=== PATIENT | female | born 1950 | race African-American/Black ===

== ENCOUNTER 2017-06-02 23:39 | Inpatient (IN) | payer MEDICARE ==
[~2017-06-02] VITALS: Ht 197.1 cm; Wt 90.7 kg
[2017-06-03] MEDS ORDERED: METHYLPREDNISOLONE SOD SUCC 125 MG/2 ML VIAL IV ONE
[2017-06-03] MEDS ORDERED: FAMOTIDINE 20MG/2ML VIAL IV ONE
[2017-06-03] MEDS ORDERED: DIPHENHYDRAMINE 50MG/ML VIAL IV ONE
[2017-06-03 00:23] LABS: BASOPHILS % 0.7 % (0.0-2.0); EOSINOPHILS % 1.1 % (0.0-5.0); HEMATOCRIT. 44.9 % (36.0-48.0); HEMOGLOBIN. 15.3 g/dL (12.0-16.0); LYMPHOCYTES % 32.8 % (20.0-50.0); MEAN CORPUSCULAR HEMOGLOBIN 31.7 pg (28.0-32.0); MEAN CORPUSCULAR VOLUME 92.9 fL (81.0-99.0); MEAN PLATELET VOLUME 8.3 fl (7.4-10.4); MONOCYTES % 10.5 % (2.0-8.0); NEUTROPHILS % 54.9 % (40.0-76.0); PLATELET 206 x1000/uL (130-400); RED BLOOD CELL COUNT 4.83 mill/uL (4.2-5.4); RED CELL DISTRIBUTION WIDTH 13.6 % (11.6-14.6)
[2017-06-03 00:36] LABS: CARBON DIOXIDE 26 mEq/L (21-32); CHLORIDE 99 mEq/L (98-107); TROPONIN I < 0.02 ng/mL (0.00-0.04)
[2017-06-03] MEDS ORDERED: POTASSIUM BICARB/CIT ACID 25 MEQ TABLET.EFF PO NR (01:00)
[2017-06-03] MEDS ORDERED: KCL 20MEQ/100ML PREMIX 100 ML IV ONE (04:15)
[2017-06-03] MEDS ORDERED: HYDRALAZINE HCL 25MG TABLET PO SCH (09:00)
[2017-06-03] MEDS ORDERED: GUAIFENESIN 200MG/10ML SUGAR FREE UDC PO PRN (09:30)
[2017-06-03] MEDS ORDERED: DOCUSATE SODIUM 100MG CAPSULE PO PRN (09:30)
[2017-06-03] MEDS ORDERED: ONDANSETRON HCL 4MG/2ML VIAL IV PRN (09:30)
[2017-06-03] MEDS ORDERED: CLONIDINE 0.1MG TABLET PO PRN (09:30)
[2017-06-03] MEDS ORDERED: DIPHENHYDRAMINE 50MG/ML VIAL IV PRN (09:30)
[2017-06-03 10:30] VITALS: BP 167/100
[2017-06-03] MEDS: AMLODIPINE 10MG TABLET PO SCH (11:18)
[2017-06-03] MEDS ORDERED: METHYLPREDNISOLONE SOD SUCC 125 MG/2 ML VIAL IV SCH (12:00)
[2017-06-03] MEDS: DIPHENHYDRAMINE 50MG/ML VIAL IV SCH ×3 (12:17→22:31)
[2017-06-03] MEDS: ENOXAPARIN 40MG/0.4ML SYR SUBCUT SCH (12:26)
[2017-06-03 14:00] VITALS: BP 133/62
[2017-06-03] MEDS ORDERED: DEXTROSE 50% WATER 50ML SYRINGE IV PRN (14:00)
[2017-06-03] MEDS ORDERED: INSULIN LISPRO 100 UNITS/ML SUBCUT NR ×2 (14:45→18:30)
[2017-06-03 18:43] LABS: CHLORIDE 100 mEq/L (98-107)
[2017-06-03 18:45] LABS: CARBON DIOXIDE 20 mEq/L (21-32)
[2017-06-03 20:00] VITALS: BP 147/76
[2017-06-03] MEDS: BLOOD SUGAR DIAGNOSTIC STRIP TEST SCH (20:28)
[2017-06-03] MEDS: INSULIN LISPRO 100 UNITS/ML SUBCUT SCH (20:36)
[2017-06-03] MEDS: BUTALBITAL/ACETAMINOPHEN/CAFFEINE 50/325/40MG TABLET PO PRN (22:51)
[2017-06-04] VITALS: BP 140/70
[2017-06-04] MEDS: DIPHENHYDRAMINE 50MG/ML VIAL IV SCH ×2 (03:25→09:00)
[2017-06-04 04:00] VITALS: BP 130/80
[2017-06-04] MEDS: BUTALBITAL/ACETAMINOPHEN/CAFFEINE 50/325/40MG TABLET PO PRN ×2 (05:31→09:17)
[2017-06-04] MEDS: BLOOD SUGAR DIAGNOSTIC STRIP TEST SCH (06:32)
[2017-06-04] MEDS: INSULIN LISPRO 100 UNITS/ML SUBCUT SCH (06:34)
[2017-06-04 07:39] LABS: BASOPHILS % 0.1 % (0.0-2.0); HEMATOCRIT. 39.8 % (36.0-48.0); HEMOGLOBIN. 13.5 g/dL (12.0-16.0); MEAN CORPUSCULAR HEMOGLOBIN 31.9 pg (28.0-32.0); MEAN CORPUSCULAR VOLUME 93.8 fL (81.0-99.0); MEAN PLATELET VOLUME 9.6 fl (7.4-10.4); MONOCYTES % 5.6 % (2.0-8.0); NEUTROPHILS % 84.3 % (40.0-76.0); PLATELET 190 x1000/uL (130-400); RED BLOOD CELL COUNT 4.24 mill/uL (4.2-5.4); RED CELL DISTRIBUTION WIDTH 13.8 % (11.6-14.6)
[2017-06-04 08:00] VITALS: BP 146/77
[2017-06-04] MEDS: AMLODIPINE 10MG TABLET PO SCH (08:59)
[2017-06-04] MEDS: ENOXAPARIN 40MG/0.4ML SYR SUBCUT SCH (09:00)
[2017-06-04] MEDS ORDERED: METHYLPREDNISOLONE SOD SUCC 40 MG/ML VIAL IV SCH (09:00)
[2017-06-04] MEDS ORDERED: ASPIRIN 81MG EC TABLET PO SCH (09:00)
[2017-06-04 09:10] LABS: CARBON DIOXIDE 25 mEq/L (21-32); CHLORIDE 103 mEq/L (98-107)
[2017-06-04 11:51] VITALS: BP 132/75
[2017-06-04 12:00] VITALS: BP 146/77
[2017-06-04] MEDS ORDERED: SUMATRIPTAN SUCCINATE 6MG/0.5ML VIAL SUBCUT NR (13:00)
== END 2017-06-04 12:25 | disposition home or self-care (01) | DRG 916 ==
LOC: ER 23:39 → 8WST 06-03 01:43 → EDBEDREQ 06-03 01:48 → EDBEDREQSVC 06-03 08:28 → ENRESERV 06-03 09:23
PROVIDERS: ADMIT Hospitalist; ATTEND Hospitalist
DX: T78.3XXA Angioneurotic edema, initial encounter (principal); E11.65 Type 2 diabetes mellitus with hyperglycemia; I10 Essential (primary) hypertension; E87.6 Hypokalemia; Z90.710 Acquired absence of both cervix and uterus; Z88.8 Allergy status to other drugs, medicaments and biological substances
CPT/HCPCS: 36415; 71010; 80048; 80053; 82962; 84484; 85025; 93005; 93970; 96365; 96366; 96375; 99285; J1200; J1650; J1815; J2920; J2930; J3030; J3480; J3490; J7040